=== PATIENT | male | born 1985 | race Caucasian/White ===

== ENCOUNTER 2020-06-27 01:51 | Emergency (ER) | payer MEDICAID, MEDICARE, OTHER ==
[~2020-06-27] VITALS: Ht 190.5 cm; Wt 158.8 kg
[2020-06-27 02:03] VITALS: BP 155/82
--- NOTE | 2020-06-27 02:20 | NUR ---
KNEE IMMOBILIZER UNABLE TO FIT PATIENT. DR. ARANGO MADE AWARE
== END 2020-06-27 02:31 | disposition home or self-care (01) ==
LOC: ER 01:58
DX: M25.561 Pain in right knee (principal); G89.29 Other chronic pain; Z90.89 Acquired absence of other organs; Z98.890 Other specified postprocedural states; Z88.5 Allergy status to narcotic agent; Z88.8 Allergy status to other drugs, medicaments and biological substances

== ENCOUNTER 2023-08-08 21:36 | Emergency (ER) | payer BC, MEDICAID ==
[~2023-08-08] VITALS: Ht 190.5 cm; Wt 154.2 kg
[2023-08-08] MEDS ORDERED: METOCLOPRAMIDE HCL 10 MG/2 ML VIAL IV ONE (23:30)
[2023-08-08] MEDS ORDERED: IV NS 0.9% 1,000 ML BAG IV ONE (23:30)
[2023-08-08] MEDS ORDERED: KETOROLAC TROMETHAMINE INJ 30 MG/ML VIAL IV ONE (23:30)
[2023-08-08] MEDS ORDERED: KETOROLAC TROMETHAMINE 15 MG/ML VIAL ONE ×2 (23:32→23:49)
[2023-08-08] MEDS ORDERED: METOCLOPRAMIDE HCL 10 MG/2 ML VIAL ONE ×2 (23:32→23:49)
[2023-08-09 01:15] VITALS: BP 135/80; TEMP 98.4; O2SAT 98
== END 2023-08-09 01:15 | disposition home or self-care (01) ==
LOC: ER 21:43
DX: R51.9 Headache, unspecified (principal); Z90.89 Acquired absence of other organs
CPT/HCPCS: 99284; 96374; 96361; 96375; J2765 ×2; J7030 ×2; J1885